=== PATIENT | male | born 1960 | race African-American/Black ===

== ENCOUNTER 2023-11-25 15:07 | Inpatient (IN) | payer OTHER ==
[2023-11-25 15:41] VITALS: BMI 29.5
[2023-11-25] MEDS ORDERED: NICOTINE POLACRILEX 2 MG LOZENGE BC PRN (18:21)
[2023-11-25] MEDS ORDERED: IBUPROFEN 400 MG TABLET (FP) PO PRN (18:21)
[2023-11-25] MEDS ORDERED: BENZOCAINE/MENTHOL (CHLORASEPTIC ) LOZENGE MM PRN (18:21)
[2023-11-25] MEDS ORDERED: POLYETHYLENE GLYCOL (HEALTHYLAX) 3350 17 GM PACKET PO PRN (18:21)
[2023-11-25] MEDS ORDERED: IBUPROFEN 600 MG TABLET (FP) PO PRN (18:21)
[2023-11-25] MEDS ORDERED: ACETAMINOPHEN 325 MG TABLET (FP) PO PRN (18:21)
[2023-11-25] MEDS ORDERED: MAG HYDROX/AL HYDROX/SIMETH 30 ML UNIT-DOSE CUP PO PRN (18:21)
[2023-11-25] MEDS ORDERED: guaiFENesin 600 MG TABLET.ER (FP) PO PRN (18:21)
[2023-11-25] MEDS ORDERED: MAGNESIUM HYDROX 2400MG/30ML ORAL SUSPENSION 30 ML CUP PO PRN (18:21)
[2023-11-25] MEDS ORDERED: NICOTINE POLACRILEX 2 MG GUM BUC PRN (18:21)
[2023-11-25] MEDS ORDERED: BENZONATATE 200 MG CAPSULE PO PRN (18:21)
[2023-11-25] MEDS ORDERED: hydrOXYzine PAMOATE 25 MG CAPSULE (FP) PO PRN (18:21)
[2023-11-25] MEDS ORDERED: LOPERAMIDE HCL 2 MG CAPSULE PO PRN (18:21)
[2023-11-25] MEDS: LISINOPRIL 5 MG TABLET PO SCH (19:45)
[2023-11-25] MEDS: ATORVASTATIN CA 40 MG TABLET (FP) PO SCH (21:32)
[2023-11-25] MEDS: MELATONIN 5 MG TABLETS PO SCH (21:32)
[2023-11-25] MEDS: THIAMINE 100 MG TABLET PO SCH (21:32)
[2023-11-26 00:04] LABS: URINE APPEARANCE CLEAR; URINE BILIRUBIN NEGATIVE (NEGATIVE); URINE COLOR YELLOW; URINE GLUCOSE (UA) NEGATIVE (NEGATIVE); URINE KETONE TRACE (NEGATIVE); URINE LEUK ESTERASE NEGATIVE (NEGATIVE); URINE NITRITE NEGATIVE (NEGATIVE); URINE PROTEIN NEGATIVE (NEGATIVE); URINE UROBILINOGEN 0.2 mg/dL (0.2-1.0)
[2023-11-26] MEDS: PRENATAL VITAMINS W/ FOLIC ACID TABLET (FP) PO SCH (09:28)
[2023-11-26] MEDS: TUBERCULIN PPD 5 TU/0.1ML SYRINGE (IN PATIENT USE ONLY) ID ONE (10:34)
[2023-11-26 15:17] LABS: HEMATOCRIT 43.8 % (35.4-49); HEMOGLOBIN 14.8 GM/dL (11.7-16.9); MCH 30.7 pg (25.7-33.7); MCHC 33.8 g/dl (32.0-35.9); MEAN CELL VOLUME 90.9 fl (80-96); MEAN PLT VOLUME 7.2 fl (7.5-11.1); PLATELET COUNT 311 10^3/uL (134-434); RBC 4.82 M/mm3 (4.00-5.60); RDW 14.8 % (11.9-15.9); WHITE BLOOD COUNT 6.9 K/mm3 (4.0-10.0)
[2023-11-26 16:14] LABS: SYPHILIS W/ RPR CONF NON-REACTIVE (NONREACTIVE)
[2023-11-26 16:24] LABS: CHLORIDE 109 mmol/L (98-107); POTASSIUM 4.2 mmol/L (3.5-5.1); SODIUM 142 mmol/L (136-145)
[2023-11-26 16:32] LABS: ALBUMIN 3.6 g/dl (3.4-5.0); ANION GAP 5 mmol/L (4-13); BLOOD UREA NITROGEN 8.3 mg/dL (7-18); CALCIUM 9.4 mg/dL (8.5-10.1); CO2 28 mmol/L (21-32)
[2023-11-26 16:33] LABS: GLUCOSE,RANDOM 83 mg/dL (74-106)
[2023-11-26 16:36] LABS: CREATININE 0.9 mg/dL (0.55-1.3); SGPT/ALT 38 U/L (13-61)
[2023-11-26 16:37] LABS: BILIRUBIN,TOTAL 0.4 mg/dL (0.2-1); TOT PROT 7.2 g/dl (6.4-8.2)
[2023-11-26 16:39] LABS: ALK PHOS 126 U/L (45-117)
[2023-11-26 16:46] LABS: SGOT/AST 20 U/L (15-37)
[2023-11-27] MEDS: LISINOPRIL 5 MG TABLET PO ONE (13:00)
[2023-11-27] MEDS: cloNIDine HCL 0.1 MG TABLET PO PRN (21:17)
[2023-11-28] MEDS ORDERED: LISINOPRIL 5 MG TABLET PO SCH (00:01)
[2023-11-28 09:53] VITALS: BP 156/93; PULSE 62; RESP 19; TEMP 97.3
[2023-11-28] MEDS: LISINOPRIL 10 MG TABLET PO SCH (10:01)
== END 2023-11-28 11:12 | disposition left against medical advice (07) | DRG 770 ==
LOC: YASAS 15:07 → Y3NR 18:52
PROVIDERS: ADMIT Allergy & Immunology; ATTEND Psychiatry & Neurology Pain Medicine
PROC: HZ42ZZZ Group Counseling for Substance Abuse Treatment, Cognitive-Behavioral (ICD-10-PCS; principal; 2023-11-25)
DX: F14.20 Cocaine dependence, uncomplicated (principal); F17.210 Nicotine dependence, cigarettes, uncomplicated; E78.5 Hyperlipidemia, unspecified; I10 Essential (primary) hypertension; Z86.11 Personal history of tuberculosis
CPT/HCPCS: 36415; 71046-TC-FY; 80053; 80305; 80307; 81003; 85027; 86780; 86803; 87811; 93005; 93010